=== PATIENT | male | born 1970 | race Caucasian/White ===

== ENCOUNTER 2016-11-20 14:56 | Emergency (ER) | payer OTHER, MEDICAID ==
[2016-11-20 15:10] VITALS: BP 128/84; PULSE 96; RESP 16; TEMP 98.2; O2SAT 96
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
[2016-11-20] MEDS ORDERED: levETIRAcetam 1,000 MG in NS 100 ML IV ONE (17:04)
[2016-11-20] MEDS ORDERED: LORazepam 2 MG/ML INJ IVP ONE (17:05)
[2016-11-20] MEDS ORDERED: PHENYTOIN SODIUM EXTENDED 100 MG CAP PO ONE (17:12)
[2016-11-20] MEDS ORDERED: DIVALPROEX ER 500 MG TAB PO SCH (17:15)
[2016-11-20 17:35] LABS: ANION GAP 9 mEq/L (8-16); CALCIUM 9.4 mg/dL (8.5-10.4); CARBON DIOXIDE 23 mEq/l (22-31); CHLORIDE 104 mEq/L (97-110); CREATININE 1.1 mg/dL (0.7-1.3); GLOMERULAR FILTRATION RATE > 60; GLUCOSE 88 mg/dL (70-100); POTASSIUM 4.6 mEq/L (3.5-5.2); SODIUM 136 mEq/L (134-144)
== END 2016-11-20 18:18 | disposition home or self-care (01) ==
LOC: EDUNIT#
DX: S40.012A Contusion of left shoulder, initial encounter (principal); S80.12XA Contusion of left lower leg, initial encounter; R56.9 Unspecified convulsions; F17.200 Nicotine dependence, unspecified, uncomplicated; V13.4XXA Pedal cycle driver injured in collision with car, pick-up truck or van in traffic accident, initial encounter; Y92.410 Unspecified street and highway as the place of occurrence of the external cause; Y99.8 Other external cause status; Y93.89 Activity, other specified
CPT/HCPCS: 96374; J1953

== ENCOUNTER 2016-11-20 18:50 | Emergency (ER) | payer MEDICAID, OTHER ==
[2016-11-20 19:05] VITALS: BP 154/90; PULSE 101; RESP 14; TEMP 98.4; O2SAT 96
[2016-11-20] MEDS ORDERED: IBUPROFEN 200 MG TAB PO ONE (19:29)
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
== END 2016-11-20 19:54 | disposition home or self-care (01) ==
LOC: EDUNIT#
DX: T14.8 Other injury of unspecified body region (principal); F17.200 Nicotine dependence, unspecified, uncomplicated; X58.XXXA Exposure to other specified factors, initial encounter

== ENCOUNTER 2016-12-01 17:31 | Emergency (ER) | payer MEDICAID, OTHER ==
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
[2016-12-01 17:59] VITALS: BP 140/78; PULSE 88; RESP 16; TEMP 98.4; O2SAT 94
== END 2016-12-01 18:28 | disposition left against medical advice (07) ==
DX: Z53.21 Procedure and treatment not carried out due to patient leaving prior to being seen by health care provider (principal)

== ENCOUNTER 2017-03-12 14:45 | Emergency (ER) | payer MEDICAID ==
[2017-03-12 14:53] VITALS: RESP 16
[2017-03-12] MEDS ORDERED: NS 1,000 ML IV ONE (14:57)
[2017-03-12] MEDS ORDERED: LORazepam 2 MG/ML INJ IVP ONE (14:57)
[2017-03-12] MEDS ORDERED: levETIRAcetam 500 MG in NS 100 ML IV ONE (14:58)
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
[2017-03-12 15:10] LABS: % IMMATURE GRANULYOCYTES 0.1 % (0.0-1.1); ABSOLUTE IMMATURE GRANULOCYTES 0.01 10^3/uL (0.00-0.10); ADD DIFF? NO; ADD MORPH? NO; ADD SCAN? NO; ATYPICAL LYMPHOCYTE FLAG 10 (0-99); FRAGMENT RBC FLAG 0 (0-99); HEMATOCRIT 42.8 % (40.0-51.0); HEMOGLOBIN 14.5 g/dL (13.7-17.5); LEFT SHIFT FLG 0 (0-99); LIPEMIA HEMOLYSIS FLAG 90 (0-99); MEAN CELL HEMOGLOBIN 32.9 pg (27.9-34.1); MEAN CELL HEMOGLOBIN CONCENTR. 33.9 g/dL (32.4-36.7); MEAN CELL VOLUME 97.1 fL (81.5-99.8); MEAN PLATELET VOLUME 9.7 fL (8.7-11.7); PLATELET CLUMPS FLAG 0 (0-99); PLATELET COUNT 301 10^3/uL (150-400); RED BLOOD CELL COUNT 4.41 10^6/uL (4.40-6.38); RED CELL DISTRIBUTION WIDTH 13.1 % (11.5-15.2)
[2017-03-12 15:22] LABS: ANION GAP 10 mEq/L (8-16); CALCIUM 10.2 mg/dL (8.5-10.4); CARBON DIOXIDE 25 mEq/l (22-31); CHLORIDE 100 mEq/L (97-110); CREATININE 1.1 mg/dL (0.7-1.3); GLOMERULAR FILTRATION RATE > 60; GLUCOSE 89 mg/dL (70-100); POTASSIUM 4.4 mEq/L (3.5-5.2); SODIUM 135 mEq/L (134-144)
[2017-03-12] MEDS ORDERED: PHENYTOIN SODIUM 1,000 MG in NS 100 ML IV ONE (15:58)
[2017-03-12 18:26] VITALS: BP 122/68; PULSE 81; TEMP 98.4; O2SAT 93
== END 2017-03-12 18:26 | disposition home or self-care (01) ==
LOC: EDUNIT#
DX: F44.5 Conversion disorder with seizures or convulsions (principal); F17.200 Nicotine dependence, unspecified, uncomplicated; E86.9 Volume depletion, unspecified; Z91.14 Patient's other noncompliance with medication regimen
CPT/HCPCS: 96365; J1953; J2060

== ENCOUNTER 2017-08-21 08:23 | Emergency (ER) | payer MEDICAID ==
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
[2017-08-21] MEDS ORDERED: IBUPROFEN 800 MG TAB PO ONE (09:17)
--- NOTE | 2017-08-21 09:39 | CPEKG ---
Heart Rate: 99 RR Interval: 606 P-R Interval: 164 QRSD Interval: 84 QT Interval: 360 QTC Interval: 462 P [place]: 74 QRS [place]: 77 T Wave [place]: 65 EKG Severity - NORMAL ECG - EKG Impression: SINUS RHYTHM Electronically Signed By: Дмитрий Walker 21-Aug-2017 11:50:38
[2017-08-21] MEDS ORDERED: ALBUTEROL INH PREPACK MDI TAKEHOME ONE (10:52)
[2017-08-21 11:29] VITALS: BP 135/75; PULSE 80; RESP 16; TEMP 98.6; O2SAT 97
== END 2017-08-21 12:00 | disposition home or self-care (01) ==
LOC: EDUNIT#
DX: J40 Bronchitis, not specified as acute or chronic (principal); F17.200 Nicotine dependence, unspecified, uncomplicated

== ENCOUNTER 2017-08-25 06:44 | Emergency (ER) | payer MEDICAID ==
[2017-08-25 06:52] VITALS: RESP 18; TEMP 98.2
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
[2017-08-25 08:17] VITALS: BP 131/97; PULSE 96; O2SAT 93
== END 2017-08-25 08:17 | disposition home or self-care (01) ==
PROC: 0VQSXZZ Repair Penis, External Approach (ICD-10-PCS; principal; 2017-08-25)
DX: S31.21XA Laceration without foreign body of penis, initial encounter (principal); F17.200 Nicotine dependence, unspecified, uncomplicated; W25.XXXA Contact with sharp glass, initial encounter; Y93.12 Activity, springboard and platform diving

== ENCOUNTER 2017-08-29 16:20 | Emergency (ER) | payer MEDICAID ==
[2017-08-29 16:28] VITALS: RESP 18
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
[2017-08-29 17:42] VITALS: BP 106/70; PULSE 97; TEMP 98.6; O2SAT 94
[2017-08-29] MEDS ORDERED: ACETAMINOPHEN 500 MG TAB PO ONE (17:51)
== END 2017-08-29 17:58 | disposition home or self-care (01) ==
DX: R05 Cough (principal); K41.90 Unilateral femoral hernia, without obstruction or gangrene, not specified as recurrent; F17.200 Nicotine dependence, unspecified, uncomplicated

== ENCOUNTER 2017-10-30 12:00 | Emergency (ER) | payer MEDICAID ==
[2017-10-30 12:17] VITALS: BP 137/97
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
== END 2017-10-30 12:34 | disposition home or self-care (01) ==
LOC: EDUNIT#
DX: G40.909 Epilepsy, unspecified, not intractable, without status epilepticus (principal); F17.200 Nicotine dependence, unspecified, uncomplicated

== ENCOUNTER 2018-01-28 23:14 | Inpatient (IN) | payer MEDICAID, OTHER ==
[2018-01-28] MEDS ORDERED: ceFAZolin 2 GM/DEXTROSE 100 ML IV ONE (23:21)
[2018-01-28] MEDS ORDERED: NS 1,000 ML IV ONE (23:21)
[2018-01-28] MEDS ORDERED: ONDANSETRON 4 MG/2 ML VIAL IVP ONE (23:22)
[2018-01-28] MEDS ORDERED: fentaNYL 100 MCG/2 ML INJ IVP ONE ×2 (23:22→23:54)
[2018-01-28 23:24] LABS: PLATELET COUNT 301 10^3/uL (150-400)
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
[2018-01-28 23:32] LABS: INR 0.93 (0.83-1.16); PROTIME(PATIENT) 12.7 SEC (12.0-15.0)
[2018-01-28] MEDS ORDERED: HYDROmorphONE/DILAUDID 2 MG/ML INJ IVP ONE (23:59)
[2018-01-29] MEDS ORDERED: HYDROmorphONE/DILAUDID 1 MG/ML INJ ONE
[2018-01-29] MEDS ORDERED: NS 1,000 ML IV ONE (00:15)
[2018-01-29] MEDS ORDERED: ONDANSETRON DISINTEGRATING 4 MG TAB PO PRN (09:39)
[2018-01-29] MEDS ORDERED: HYDROCODONE/APAP 5/325 TAB PO PRN (09:39)
[2018-01-29] MEDS ORDERED: ACETAMINOPHEN 325 MG TAB PO PRN (09:39)
[2018-01-29] MEDS ORDERED: ONDANSETRON 4 MG/2 ML VIAL IVP PRN (09:39)
[2018-01-29] MEDS: IBUPROFEN 600 MG TAB PO SCH ×2 (13:56→21:14)
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
[2018-01-30] MEDS: IBUPROFEN 600 MG TAB PO SCH ×2 (05:49→14:19)
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
[2018-01-30] MEDS ORDERED: LISINOPRIL 20 MG TAB PO SCH (09:00)
--- NOTE | 2018-01-30 10:46 | ASMTLACE ---
RASHIDA Length of stay for Answers: 1 day current admission Comorbidities - select Answers: Mild liver or renal all that apply disease Other Notes: HTN # of Emergency department Answers: 5-8 visits in the last 6 months Social determinants Answers: History of substance abuse (ETOH, street drugs, prescription drugs, etc.) Homelessness (street, penitentiary) Lack of community resources and/or lack of social support (no pcp, lives alone, transportation, tramaine d) Score: 18 Date Signed: 01/30/2018 10:46 AM Electronically Signed By:Anaid Johnson RN
--- NOTE | 2018-01-30 10:55 | ASMTCMCOM ---
CM Note CM Note Notes: Reviewed this patient's chart and met with patient to discuss discharge planning. Patient is currently homeless and states he does not typically utilize the correction bed, but is open to staying there. Patient states he has a 'service dog' for seizures and has a 'script' that states he needs the dog with him at all times. CM confirmed with the [facility] correction that they are able to accommodate service dogs and will meet with the patient at the time of intake to evaluate this. I asked patient if he has the proof that the dog is indeed a service dog and he states he will try and obtain that information before time of intake at the correction (5:30 p.m.). We discussed other opportunities, ie: girlfriend taking dog for a couple of nights and patient stated "I need the dog." The current plan will be for patient to discharge and obtain needed proof for the homeless correction. He states he understands this and will be at the correction by intake. CM has reserved the correction bed and a follow-up appointment at [facility] has been scheduled for Sunday @ 10:45 a.m. PT/OT have both cleared him, patient is able to discharge with crutches that are in his room. Also reviewed SBIRT, negative - no CAGE needed. CM will provide a couple of local bus passes for transportation needs. This case has been disussed with RN and therapy. CM is available for any further needs. Date Signed: 01/30/2018 10:54 AM Electronically Signed By:Anaid Johnson RN
--- NOTE | 2018-01-30 12:06 | WOCRNPDOC ---
JAIR Advanced Assessment Note - Skin Integrity Problem, Advanced Assess Right Lower Leg Dressing Type: Norberto, Mepilex Transfer Dressing Description: Clean/Dry, Intact Closure Description: Sutures, Approximated Exudate Amount: None Lennie Wound Tissue: Erythema, Painful/Tender Skin Integrity Problem Comment: No need for wound care as wound has been repaired. Dr. Ga following. Wound care will sign off.
--- NOTE | 2018-01-30 14:51 | CPEKG ---
Heart Rate: 76 RR Interval: 789 P-R Interval: 160 QRSD Interval: 88 QT Interval: 412 QTC Interval: 464 P [place]: 77 QRS [place]: 84 T Wave [place]: 79 EKG Severity - ABNORMAL ECG - EKG Impression: SINUS RHYTHM EKG Impression: CONSIDER LEFT VENTRICULAR HYPERTROPHY Electronically Signed By: Gustavo Morales 30-Jan-2018 15:24:56
[2018-01-30 15:39] VITALS: BP 128/80
[2018-01-30 15:49] LABS: CREATINE KINASE 232 IU/L (0-224)
--- NOTE | 2018-01-30 15:49 | ECHO ---
[email or web address] [address] [address] Main: [phone] Fax: Transthoracic Echocardiogram Name: ARJUN RUIZ MR#: [id number] Study Date: 01/30/2018 Study Time: 02:51 PM Date of : 1970 Age: 47 year(s) Height: 170.2 cm (67 in.) Weight: 70.31 kg (155 lb.) BSA: 1.81 m2 Gender: Male Examination: Echo Indication: AIR IN PERICARDIUM/ R/O EFFUSION Image Quality: Adequate Contrast: Requested by: Jacqueline Olson BP: 142 mmHg/98 mmHg Heart Rate: Rhythm: Indication: AIR IN PERICARDIUM/ R/O EFFUSION Procedure Staff Muck Boss: Mita Watkins RDCS Reading Physician: Milan Henry MD Requesting Provider: Conclusions: Normal size left ventricle. No LV hypertrophy. Normal global systolic LV function. EF is 62 %. No regional wall motion abnormality. Unable to assess diastolic dysfunction. An agitated saline study was performed and was negative for intracardiac shunting. Mild mitral valve regurgitation is present. There is no significant aortic valve regurgitation. Mild tricuspid regurgitation is present. The pulmonary artery pressure is normal. Right ventricular systolic pressure measures 28mmHg. Normal size ascending aorta measuring 2.8 cm. No previous available Measurements: Chambers Valvular Assessment AV/MV Valvular Assessment TV/PV Normal Normal Normal Name Value Range Name Value Range Name Value Range Ao Lisa (2D): 2.7 cm (1.4 cm-2.6 AV Vmax: 1.26 m/s (1 m/s-1.7 TR Vmax: 2.39 mm/s ( - ) cm) m/s) TR PGmax: 23 mmHg ( - ) IVSd (2D): 0.8 cm (0.6 cm-1.1 AV maxP mmHg ( - ) syst. PAP: 28 mmHg ( - ) cm) AV meanP mmHg ( - ) PV Vmax: 1.03 m/s (0.6 m/s-0.9 LVDd (2D): 4.1 cm (4.2 cm-5.9 SOTO (VTI): 2.4 cm ( - ) m/s) cm) MV E Vmax: 0.52 m/s ( - ) PV PGmax: 4 mmHg ( - ) LVDs (2D): 3.2 cm (2.1 cm-4 MV A Vmax: 0.53 m/s ( - ) cm) MV E/A: 0.98 ( - ) LVPWd (2D): 1.2 cm (0.6 cm-1 cm) MV PHT: 0.083 s ( - ) LVOTd 2.0 cm 2.0 cm mm MVA (PHT): 2.7 s ( - ) Patient: ARJUN RUIZ Study Date: 01/30/2018 Page 1 of 2 02:51 PM LVEF (BP): 62 % (>=55 %) RVDd(2D): 2.4 cm (1.9 cm-3.8 cmmm) Continued Measurements: Chambers Valvular Assessment AV/MV Valvular Assessment TV/PV Name Value Name Value Name Value LADs Lon.8 cm MV DecTime: 285 m/s CVP (est.): 5 mmHg LA Area: 14.4 cm2 MV E' Septal: 0.07 m/s LA Volume: 41 ml MV E/E' Septal: 7.80 LA Volume Index: 22.7 ml/m2 MV E/E' Lateral: 4.80 RA Area: 10.3 cm2 Additional Vessels Name Value Ao Ascendin.8 cm Inferior Vena Cava: 1.3 cm Findings: Left Ventricle: Normal size left ventricle. No LV hypertrophy. Normal global systolic LV function. EF is 62 %. No regional wall motion abnormality. Unable to assess diastolic dysfunction. Right Ventricle: Normal size right ventricle. Normal RV function. Left Atrium: The left atrium is normal in size. An agitated saline study was performed and was negative for intracardiac shunting. Right Atrium: The right atrium is normal in size. Mitral Valve: The mitral valve is normal in appearance and function. Mild mitral valve regurgitation is present. No mitral stenosis is present. Aortic Valve: The aortic valve is tri-leaflet. There is no significant aortic valve regurgitation. No aortic valve stenosis is present. Tricuspid Valve: The tricuspid valve is normal in appearance and function. Mild tricuspid regurgitation is present. The pulmonary artery pressure is normal. Right ventricular systolic pressure measures 28mmHg. Pulmonic Valve: The pulmonic valve is normal in appearance and function. There is no pulmonic regurgitation seen. Aorta: The aorta is normal. Normal size aortic root measuring 2.7 cm. Normal size ascending aorta measuring 2.8 cm. IVC: The IVC is normal sized. Pericardium: No pericardial effusion. No pleural effusion. (No Signature Object) Patient: ARJUN RUIZ Study Date: 01/30/2018 Page 2 of 2 02:51 PM [id number]
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
== END 2018-01-30 19:43 | disposition left against medical advice (07) | DRG 317 ==
LOC: EDUNIT# → F3N 01-29 08:54 → OBSVTOIN 01-29 09:41
PROVIDERS: ADMIT Surgery; ATTEND Surgery
PROC: 0KQS3ZZ Repair Right Lower Leg Muscle, Percutaneous Approach (ICD-10-PCS; principal; 2018-01-28)
DX: S86.321A Laceration of muscle(s) and tendon(s) of peroneal muscle group at lower leg level, right leg, initial encounter (principal); B19.20 Unspecified viral hepatitis C without hepatic coma; S86.191A Other injury of other muscle(s) and tendon(s) of posterior muscle group at lower leg level, right leg, initial encounter; Z59.0 Homelessness; I10 Essential (primary) hypertension; V23.4XXA Motorcycle driver injured in collision with car, pick-up truck or van in traffic accident, initial encounter; R40.2411 Glasgow coma scale score 13-15, in the field [EMT or ambulance]; F15.90 Other stimulant use, unspecified, uncomplicated; F11.90 Opioid use, unspecified, uncomplicated
CPT/HCPCS: 80305; 92523-GN; 96365; 97161-GP; 97165-GO; 97535-GO; G0480; J0690; J1170; J2405; J3010; L0120

== ENCOUNTER 2018-03-11 10:39 | Emergency (ER) | payer MEDICAID ==
--- NOTE | 2018-03-11 10:37 | EDPHY ---
H & P Time Seen by Provider: 03/11/18 10:43 Constitutional: Initial Vital Signs Temperature (C) 36.5 C 03/11/18 10:47 Heart Rate 91 03/11/18 10:47 Respiratory Rate 20 03/11/18 10:47 Blood Pressure 165/78 H 03/11/18 10:47 O2 Sat (%) 95 03/11/18 10:47 O2 Delivery Mode Room Air Allergies/Adverse Reactions: iodine Allergy (Severe, Verified 01/28/18 23:30) Swelling/neck,face,throat Home Medications: Medication Instructions Recorded Lisinopril [Zestril 20 mg (*)] 20 mg PO DAILY 08/29/17 Acetaminophen [Tylenol 325mg (*)] 325 mg PO DAILY PRN 01/29/18 Cephalexin [Keflex] 500 mg PO Q6H #28 cap 01/29/18 Hydrocodone/APAP 5/325 [Victor 1 - 2 tab PO Q4H PRN #10 tab 01/29/18 5/325] Ibuprofen [Motrin (*)] 800 mg PO Q6-8PRN #14 tab 01/29/18 Medical Decision Making ED Course/Re-evaluation: CHIEF COMPLAINT: Medical clearance for snf HISTORY OF PRESENT ILLNESS: The patient is a homeless 47 y/o male with a seizure disorder arriving in [employer] custody for medical clearance for snf. He complains of a "knot" in his abdomen, is concerned about an infection on his right calf, and says he is off his medications including Keppra and Lisinopril. No vomiting, fever, chest pain, dyspnea, urinary symptoms. Normal bowel movements. No recent trauma or illness. REVIEW OF SYSTEMS: A comprehensive 10 system review of systems is otherwise negative aside from elements mentioned in the history of present illness and medical decision making. PHYSICAL EXAM: HR, BP, O2 Sat, RR. Temp noted General Appearance: Alert, well hydrated, appropriate, and non-toxic appearing. Disheveled. Head: Atraumatic without scalp tenderness or obvious injury Eyes: Pupils equal, round, reactive to light and accommodation, EOMI, no trauma , no injection. Nose: Atraumatic, no rhinorrhea, clear. Throat: Mucus membranes moist. Neck: Supple, nontender, no lymphadenopathy. Respiratory: No retractions, no distress, no wheezes, and no accessory muscle use. Lungs are clear to auscultation bilaterally. Cardiovascular: Regular rate and rhythm, no murmurs, rubs, or gallops. Good capillary refill all extremities. Gastrointestinal: Abdomen is soft, nontender, non-distended, no masses, no rebound, no guarding, no peritoneal signs. Reducible left inguinal hernia. Musculoskeletal: Normal active ROM of all extremities, atraumatic. Old suture line lateral right calf with healing scabs present, no surrounding erythema, warmth, swelling, or fluctuance. Neurological: Alert, appropriate, and interactive. The patient has non-focal cranial nerves, motor, sensory, and cerebellar exam. Skin: No rashes, good turgor, no nodules on palpation. Past medical history: Seizure disorder - Keppra; hypertension - lisinopril Past surgical history: Noncontributory Family history: Noncontributory Social history: Transient. In [employer] custody. DIFFERENTIAL DIAGNOSIS: The differential diagnosis for the patient's abdominal pain included but was not limited to appendicitis, cholecystitis, hernias, testicular torsion, gastritis, and urinary tract infection. MEDICAL DECISION MAKIN47 y/o male presents for medical clearance to the snf. No urgent medical issues , hemodynamically stable. Inguinal hernia is reducible without evidence of incarceration. No evidence of infection on calf. Plan for treatment with 500mg PO Keppra, 20mg PO lisinopril here and discharge to the snf with scripts. Referral to surgeon provided for hernia. Spoke with snf nurse and updated her on patient condition and prescription needs. Departure - Departure Disposition: Home, Routine, Self-Care Clinical Impression: Seizure disorder Inguinal hernia Qualifiers: Obstruction and gangrene presence: without obstruction or gangrene Laterality: unilateral Recurrence: not specified as recurrent Qualified Code(s): K40.90 - Unilateral inguinal hernia, without obstruction or gangrene, not specified as recurrent Condition: Good Instructions: Inguinal Hernia (ED) Additional Instructions: 1. Take Keppra as prescribed daily for seizure prophylaxis. 2. Take lisinopril as prescribed daily for hypertension. 3. Follow up with your primary care provider as needed. 4. Follow up with surgeon to assess your inguinal hernia in your groin. You've been referred to Dr. Waggoner. Medically clear for snf. Referrals: [facility],. [Clinic] - As per Instructions Brett Waggoner MD [Medical Doctor] - As per Instructions Report Scribed for: Marco Antonio Rivera Report Scribed by: Gema Orellana Date of Report: 03/11/18 Time of Report: 10:43
[2018-03-11] MEDS ORDERED: LISINOPRIL 20 MG TAB PO ONE (10:47)
[2018-03-11] MEDS ORDERED: levETIRAcetam 500 MG TAB PO ONE (10:47)
[2018-03-11 11:10] VITALS: BP 155/110
== END 2018-03-11 11:10 | disposition home or self-care (01) ==
LOC: EDUNIT#
DX: K40.90 Unilateral inguinal hernia, without obstruction or gangrene, not specified as recurrent (principal); Z86.69 Personal history of other diseases of the nervous system and sense organs

== ENCOUNTER 2018-03-12 16:41 | Emergency (ER) | payer MEDICAID ==
--- NOTE | 2018-03-12 16:47 | EDPHY ---
H & P Time Seen by Provider: 03/12/18 16:49 HPI/ROS: CHIEF COMPLAINT: Seizure HISTORY OF PRESENT ILLNESS: The patient is a 47-year-old man with a history of epilepsy who had 2 seizures today in care home. According to paramedics he had been refusing his Keppra. He tells me that he does not like the way it makes him feel. It makes him feel like he is floating. He states that he has to take phenobarbital and that he tolerated this better. He would like to switch back. Paramedics state that he had 2 generalized tonic-clonic seizures about an hour apart this afternoon. He did cover completely in between. He is now recovered. No incontinence. No tongue lacerations. No trauma. No recent fevers or illness. He tells me is not drink alcohol in 15 years. He does use methamphetamine regularly. He also tells me that 1 time they were angry at him in this hospital because he faked a seizure to get out of care home. Severity: Severe Modifying factors: Medication noncompliance REVIEW OF SYSTEMS: Constitutional: denies: chills, fever, recent illness, recent injury EENTM: denies: blurred vision, double vision, nose congestion Respiratory: denies: cough, shortness of breath Cardiac: denies: chest pain, irregular heart rate, lightheadedness, palpitations Gastrointestinal/Abdominal: denies: abdominal pain, diarrhea, nausea, vomiting, blood streaked stools Genitourinary: denies: dysuria, frequency, hematuria, pain Musculoskeletal: denies: joint pain, muscle pain Skin: denies: lesions, rash, jaundice, bruising Neurological: See HPI denies: headache, numbness, paresthesia, tingling, dizziness, weakness Hematologic/Lymphatic: denies: blood clots, easy bleeding, easy bruising Immunologic/allergic: denies: HIV/AIDS, transplant 10 systems reviewed and negative except as noted EXAM: GENERAL: The disheveled, well-nourished and in no acute distress. HEAD: Atraumatic, normocephalic. EYES: Pupils equal round and reactive to light, extraocular movements intact, sclera anicteric, conjunctiva are normal. ENT: TMs normal, nares patent, oropharynx clear without exudates. Moist mucous membranes. NECK: Normal range of motion, supple without lymphadenopathy or JVD. LUNGS: Breath sounds clear to auscultation bilaterally and equal. No wheezes rales or rhonchi. HEART: Regular rate and rhythm without murmurs, rubs or gallops. ABDOMEN: Soft, nontender, normoactive bowel sounds. No guarding, no rebound. No masses appreciated. BACK: No CVA tenderness, no spinal tenderness, step-offs or deformities EXTREMITIES: Normal range of motion, no pitting or edema. No clubbing or cyanosis. NEUROLOGICAL: Cranial nerves II through XII grossly intact. Normal speech, normal gait. 5/5 strength, normal movement in all extremities, normal sensation , normal reflexes PSYCH: Normal mood, normal affect. SKIN: Warm, dry, normal turgor, no visible rashes or lesions. Source: Patient, EMS, Old records Exam Limitations: No limitations - Personal History Tetanus Vaccine Date: < 10 YEARS - Medical/Surgical History Hx Asthma: No Hx Chronic Respiratory Disease: No Hx Diabetes: No Hx Cardiac Disease: No Hx Renal Disease: No Hx Cirrhosis: Yes Hx Alcoholism: Yes Hx HIV/AIDS: No Hx Splenectomy or Spleen Trauma: No Other PMH: heroin addiction, hep C, meth addiction - Family History Significant Family History: No pertinent family hx - Social History Smoking Status: Heavy smoker Alcohol Use: Sober Drug Use: None Constitutional: Initial Vital Signs Temperature (C) 36.6 C 03/12/18 16:51 Heart Rate 70 03/12/18 16:51 Respiratory Rate 18 03/12/18 16:51 Blood Pressure 136/93 H 03/12/18 16:51 O2 Sat (%) 94 03/12/18 16:51 O2 Delivery Mode Room Air Allergies/Adverse Reactions: iodine Allergy (Severe, Verified 01/28/18 23:30) Swelling/neck,face,throat Home Medications: Medication Instructions Recorded Lisinopril [Zestril 20 mg (*)] 20 mg PO DAILY 08/29/17 Acetaminophen [Tylenol 325mg (*)] 325 mg PO DAILY PRN 01/29/18 Cephalexin [Keflex] 500 mg PO Q6H #28 cap 01/29/18 Hydrocodone/APAP 5/325 [[place] 1 - 2 tab PO Q4H PRN #10 tab 01/29/18 5/325] Ibuprofen [Motrin (*)] 800 mg PO Q6-8PRN #14 tab 01/29/18 Lisinopril 20 mg PO DAILY #30 tablet 03/11/18 levETIRAcetam [Keppra 500 mg (*)] 500 mg PO BID #60 tab 03/11/18 PHENobarbital [PHENOBARBITAL] 64.8 mg PO BID #30 tablet 03/12/18 Medical Decision Making ED Course/Re-evaluation: The patient does not want to keep using Keppra. He wants to be switched back to phenobarbital. Otherwise he states that he is feeling well and is back to normal. I will check his chemistries and start him on a dose of phenobarbital now as well as give her prescription. He has been released from the care home. I also discouraged further methamphetamine use. 5:00 p.m. I discussed the phenobarbital dosing with pharmacy 5:20 p.m. the patient is feeling completely well. He is eager to go home. He has received his phenobarbital. He has a prescription for more. He declines further workup or testing at this time. His chemistries are reassuring. Differential Diagnosis: Partial list of the Differential diagnosis considered include but were not limited to; epilepsy, medication noncompliance, stimulant abuse, withdrawal and although unlikely based on the history and physical exam, I also considered trauma, infection, tumor, CVA. I discussed these differential diagnoses and the plan with the patient as well as the usual and expected course. The patient understands that the diagnosis is provisional and that in medicine we are not always correct and that further workup is often warranted. Usual and customary warnings were given. All of the patient's questions were answered. The patient was instructed to return to the emergency department should the symptoms at all worsen or return, otherwise to followup with the physician as we discussed. - Data Points Laboratory Results: Laboratory Results 03/12/18 16:53 03/12/18 16:53 03/12/18 03/12/18 16:53 16:53 WBC 5.23 10^3/uL 10^3/uL (3.80-9.50) RBC 4.50 10^6/uL 10^6/uL (4.40-6.38) Hgb 14.6 g/dL g/dL (13.7-17.5) Hct 42.7 % % (40.0-51.0) MCV 94.9 fL fL (81.5-99.8) MCH 32.4 pg pg (27.9-34.1) MCHC 34.2 g/dL g/dL (32.4-36.7) RDW 13.4 % % (11.5-15.2) Plt Count 266 10^3/uL 10^3/uL (150-400) MPV 10.2 fL fL (8.7-11.7) Neut % (Auto) 47.6 % % (39.3-74.2) Lymph % (Auto) 40.7 % % (15.0-45.0) [place] % (Auto) 10.3 % % (4.5-13.0) Eos % (Auto) 0.8 % % (0.6-7.6) Baso % (Auto) 0.4 % % (0.3-1.7) Nucleat RBC Rel Count 0.0 % % (0.0-0.2) Absolute Neuts (auto) 2.49 10^3/uL 10^3/uL (1.70-6.50) Absolute Lymphs (auto) 2.13 10^3/uL 10^3/uL (1.00-3.00) Absolute Monos (auto) 0.54 10^3/uL 10^3/uL (0.30-0.80) Absolute Eos (auto) 0.04 10^3/uL 10^3/uL (0.03-0.40) Absolute Basos (auto) 0.02 10^3/uL 10^3/uL (0.02-0.10) Absolute Nucleated RBC 0.00 10^3/uL 10^3/uL (0-0.01) Immature Gran % 0.2 % % (0.0-1.1) Immature Gran # 0.01 10^3/uL 10^3/uL (0.00-0.10) Sodium 137 mEq/L mEq/L (135-145) Potassium 4.9 mEq/L mEq/L (3.3-5.0) Chloride 104 mEq/L mEq/L (97-110) Carbon Dioxide 27 mEq/l mEq/l (22-31) Anion Gap 6 mEq/L L mEq/L (8-16) BUN 23 mg/dL mg/dL (7-23) Creatinine 1.2 mg/dL mg/dL (0.7-1.3) Estimated GFR > 60 Glucose 84 mg/dL mg/dL (70-100) Calcium 9.6 mg/dL mg/dL (8.5-10.4) Medications Given: Discontinued Medications Phenobarbital (Phenobarbital) 30 mg PO EDNOW ONE Stop: 03/12/18 17:16 Last Admin: 03/12/18 17:12 Dose: 30 mg Departure - Departure Disposition: Home, Routine, Self-Care Clinical Impression: Epilepsy Qualifiers: Epilepsy type: unspecified Intractability: not intractable Status epilepticus: without status epilepticus Qualified Code(s): G40.909 - Epilepsy, unspecified, not intractable, without status epilepticus Condition: Fair Instructions: Epilepsy (ED) Referrals: NONE *PRIMARY CARE P,. [Primary Care Provider] - As per Instructions Maximo Canela DO [Doctor of Osteopathy] - 2-3 days, call for appt. Prescriptions: PHENobarbital [PHENOBARBITAL] 64.8 mg PO BID #30 tablet
[2018-03-12] MEDS ORDERED: PHENobarbital 30 MG TAB PO ONE (17:15)
[2018-03-12 17:30] VITALS: BP 135/80
[2018-03-12 17:38] LABS: PLATELET COUNT 266 10^3/uL (150-400)
--- NOTE | 2018-03-13 14:49 | ASMTCMCOM ---
CM Note CM Note Notes: Followed up with [facility] today re:pt being in the ED and needing to follow-up and obtain antiseizure medications. Spoke w/Samira at and he states pt hasn't been seen there for awhile but they have been in contact w/[facility] and are keeping an eye out for the patient in the community. CM available for further assistance if needed. Date Signed: 03/13/2018 02:48 PM Electronically Signed By:Heidi Murcia RN
== END 2018-03-12 17:30 | disposition home or self-care (01) ==
LOC: EDUNIT#
DX: G40.909 Epilepsy, unspecified, not intractable, without status epilepticus (principal); F17.200 Nicotine dependence, unspecified, uncomplicated; Z91.14 Patient's other noncompliance with medication regimen

== ENCOUNTER 2018-07-01 13:19 | Emergency (ER) | payer MEDICAID ==
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
[2018-07-01] MEDS ORDERED: levETIRAcetam 1000MG/NACL 100 ML IV ONE (13:42)
[2018-07-01 13:51] LABS: PLATELET COUNT 311 10^3/uL (150-400)
[2018-07-01 14:04] VITALS: BP 147/95
== END 2018-07-01 14:32 ==
LOC: EDUNIT#
DX: G40.909 Epilepsy, unspecified, not intractable, without status epilepticus (principal); B19.20 Unspecified viral hepatitis C without hepatic coma; F12.929 Cannabis use, unspecified with intoxication, unspecified; F11.20 Opioid dependence, uncomplicated; Z91.14 Patient's other noncompliance with medication regimen; F17.200 Nicotine dependence, unspecified, uncomplicated
CPT/HCPCS: 96365; J1953

== ENCOUNTER 2018-07-02 11:38 | Emergency (ER) | payer MEDICAID, OTHER ==
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
[2018-07-02] MEDS ORDERED: levETIRAcetam 1000MG/NACL 100 ML IV ONE (11:49)
[2018-07-02] MEDS ORDERED: SKIN ADHESIVE (DERMABOND) 1 EACH TP ONE (11:55)
[2018-07-02] MEDS ORDERED: LORazepam 2 MG/ML INJ ONE (12:03)
[2018-07-02 13:50] VITALS: BP 150/108
== END 2018-07-02 13:48 ==
LOC: EDUNIT#
PROC: 0HQ1XZZ Repair Face Skin, External Approach (ICD-10-PCS; principal; 2018-07-02)
DX: S01.81XA Laceration without foreign body of other part of head, initial encounter (principal); G40.909 Epilepsy, unspecified, not intractable, without status epilepticus; W19.XXXA Unspecified fall, initial encounter; Y92.149 Unspecified place in prison as the place of occurrence of the external cause; Y93.9 Activity, unspecified; Y99.9 Unspecified external cause status
CPT/HCPCS: 82435-PO; 82565-PO; 82947-PO; 84132-PO; 84295-PO; 84520-PO; 85014-PO; 96365; J1953; J2060

== ENCOUNTER 2018-07-02 16:27 | Emergency (ER) | payer OTHER ==
[2018-07-02 16:36] VITALS: BP 157/114
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
== END 2018-07-02 18:04 | disposition home or self-care (01) ==
LOC: EDUNIT#
DX: S01.01XA Laceration without foreign body of scalp, initial encounter (principal); S01.81XA Laceration without foreign body of other part of head, initial encounter; R56.9 Unspecified convulsions; W19.XXXA Unspecified fall, initial encounter; Y92.9 Unspecified place or not applicable; Y93.9 Activity, unspecified; Y99.9 Unspecified external cause status; Z86.19 Personal history of other infectious and parasitic diseases

== ENCOUNTER 2018-12-09 17:13 | Inpatient (IN) | payer MEDICAID | END 2018-12-11 18:15 | disposition left against medical advice (07) | LOC: F1N 20:42 ==